=== PATIENT | female | born 1940 | race Caucasian/White ===

== ENCOUNTER 2022-10-03 13:35 | Inpatient (IN) | payer MEDICARE ==
[~2022-10-03] VITALS: Ht 149.9 cm; Wt 43.1 kg
[2022-10-03] MEDS ORDERED: ASPIRIN 81 MG CHEW TAB PO ONE ×2 (16:15→18:45)
[2022-10-03] MEDS ORDERED: ALBUTEROL/IPRATROPIUM 3 ML NEB NEB ONE (16:15)
[2022-10-03 16:25] LABS: BASOPHILS # (AUTO) 0.1 (0.0-0.1); BASOPHILS % 0.5 % (0.0-1.0); HEMATOCRIT 39.5 % (34.2-44.1); HEMOGLOBIN 12.2 g/dL (12.0-16.0); LYMPHOCYTES # (AUTO) 0.9 (1.0-3.2); LYMPHOCYTES % 3.8 % (18.0-39.1); MEAN CORPUSCULAR HEMOGLOBIN 31.2 pg (28-32); MEAN CORPUSCULAR HGB CONC 30.9 g/dL (31-35); MONOCYTES # (AUTO) 0.4 (0.2-0.8); MONOCYTES % 1.9 % (4.4-11.3); NEUTROPHILS # (AUTO) 20.4 (2.1-6.9); PLATELET COUNT 296 x10e3/uL (140-360); RED BLOOD COUNT 3.91 x10e6/uL (3.6-5.1); RED CELL DISTRIBUTION WIDTH 14.6 % (11.7-14.4)
[2022-10-03 16:35] LABS: ALBUMIN 2.6 g/dL (3.5-5.0); ALBUMIN/GLOBULIN RATIO 0.5 (0.8-2.0); CALCIUM 9.4 mg/dL (8.4-10.2); CREATININE, SERUM 0.84 mg/dL (0.57-1.11)
[2022-10-03 16:43] LABS: CREATINE KINASE MB 2.2 ng/mL (0-5.0)
[2022-10-03] MEDS ORDERED: CEFTRIAXONE 1 GM VIAL IV ONE (17:15)
[2022-10-03] MEDS ORDERED: SODIUM CHLORIDE 0.9% 1000ML 1,000 ML IV SCH (17:15)
[2022-10-03] MEDS ORDERED: IOPAMIDOL 370 MG/ML 100 ML INFUS..BTL INJ ONE (17:35)
[2022-10-03] MEDS ORDERED: SODIUM CHLORIDE 0.9% 100 ML ONE (17:35)
[2022-10-03] MEDS ORDERED: SODIUM CHLORIDE FLUSH 10 ML SYR INJ PRN (18:45)
[2022-10-03] MEDS ORDERED: Morphine 2mg Syringe 2 MG/ML SYR IV PRN (18:45)
[2022-10-03] MEDS ORDERED: ONDANSETRON HCL INJ 2MG/ML 2ML 2 MG/ML VIAL IV PRN (18:45)
[2022-10-03 18:50] LABS: BAND NEUTROPHILS % (MANUAL) 5 %; LYMPHOCYTES % (MANUAL) 3 % (19-48); METAMYELOCYTES % (MANUAL) 1 % (0-0); MONOCYTES % (MANUAL) 2 % (3.4-9.0); MYELOCYTES % (MANUAL) 2 % (0-0); NEUTROPHILS % (MANUAL) 87 % (40-74)
[2022-10-03 18:51] LABS: PLATELET ESTIMATE ADEQUATE; PLATELET MORPHOLOGY COMMENT FEW EDTA CLUMPING
[2022-10-03 18:52] LABS: RBC MORPHOLOGY COMMENT NORMAL
[2022-10-03 21:17] LABS: CREATINE KINASE MB 2.6 ng/mL (0-5.0)
[2022-10-03] MEDS: SODIUM CHLORIDE 0.9% 1000ML 1,000 ML IV SCH (23:25)
[2022-10-03] MEDS ORDERED: LEVOTHYROXINE75 MCG PO (23:58)
[2022-10-03] MEDS ORDERED: CARVEDILOL3.125 MG PO (23:58)
[2022-10-03] MEDS ORDERED: ASPIRIN81 MG PO (23:58)
[2022-10-03] MEDS ORDERED: ADVIL200 M1 PO (23:58)
[2022-10-03] MEDS ORDERED: ESCITALOPRAM OX10 MG PO (23:58)
[2022-10-04] VITALS (8 sets, daily range): BP systolic 140–168; BP diastolic 55–76
[2022-10-04] MEDS ORDERED: ACETAMINOPHEN 325 MG TAB PO PRN (01:00)
[2022-10-04] MEDS ORDERED: TEMAZEPAM 15 MG CAP PO PRN (01:30)
[2022-10-04] MEDS: HYDRALAZINE HCL 20 MG/ML VIAL IV PRN (03:02)
[2022-10-04 03:29] LABS: CREATINE KINASE MB 2.5 ng/mL (0-5.0)
[2022-10-04 05:55] LABS: BASOPHILS # (AUTO) 0.2 (0.0-0.1); BASOPHILS % 0.6 % (0.0-1.0); HEMATOCRIT 37.5 % (34.2-44.1); LYMPHOCYTES # (AUTO) 1.2 (1.0-3.2); LYMPHOCYTES % 5.2 % (18.0-39.1); MEAN CORPUSCULAR HEMOGLOBIN 31.3 pg (28-32); MEAN CORPUSCULAR VOLUME 97.7 fL (81-99); MONOCYTES # (AUTO) 0.4 (0.2-0.8); MONOCYTES % 1.9 % (4.4-11.3); NEUTROPHILS # (AUTO) 19.4 (2.1-6.9); NEUTROPHILS % 82.9 % (38.7-80.0); PLATELET COUNT 301 x10e3/uL (140-360); RED BLOOD COUNT 3.84 x10e6/uL (3.6-5.1); RED CELL DISTRIBUTION WIDTH 14.3 % (11.7-14.4)
[2022-10-04 06:24] LABS: ALBUMIN 2.3 g/dL (3.5-5.0); ALBUMIN/GLOBULIN RATIO 0.5 (0.8-2.0); ANION GAP 14.1 mmol/L (8-16); CALCIUM 8.8 mg/dL (8.4-10.2); CHOL/HDL RATIO 4.6 (3.0-3.6); CREATININE, SERUM 0.84 mg/dL (0.57-1.11); PHOSPHORUS 2.1 MG/DL (2.3-4.7); POTASSIUM 4.1 mmol/L (3.5-5.1)
[2022-10-04 06:47] LABS: THYROID STIMULATING HORMONE 2.559 uIU/mL (0.350-4.940)
[2022-10-04] MEDS ORDERED: FAMOTIDINE 20 MG TAB PO SCH (07:30)
[2022-10-04 08:50] LABS: BAND NEUTROPHILS % (MANUAL) 7 %; LYMPHOCYTES % (MANUAL) 3 % (19-48); METAMYELOCYTES % (MANUAL) 3 % (0-0); MONOCYTES % (MANUAL) 2 % (3.4-9.0); MYELOCYTES % (MANUAL) 3 % (0-0); NEUTROPHILS % (MANUAL) 81 % (40-74); NUCLEATED RED BLOOD CELLS 1; PLATELET ESTIMATE ADEQUATE; PLATELET MORPHOLOGY COMMENT NORMAL; RBC MORPHOLOGY COMMENT NORMAL; TOXIC GRANULATION MODERATE
[2022-10-04] MEDS: FAMOTIDINE 20 MG TAB PO SCH (09:00)
[2022-10-04] MEDS ORDERED: ONDANSETRON HCL 4 MG ORAL DISINTEGRATING TAB PO PRN (09:30)
[2022-10-04] MEDS: CARVEDILOL 3.125 MG TAB PO SCH ×2 (10:00→16:48)
[2022-10-04] MEDS: ESCITALOPRAM OXALATE 10 MG TAB PO SCH (10:00)
[2022-10-04] MEDS: LEVOTHYROXINE SODIUM 75 MCG TAB PO SCH (10:00)
[2022-10-04] MEDS: SODIUM CHLORIDE 0.9% 1000ML 1,000 ML IV SCH (10:09)
[2022-10-04 11:25] LABS: CREATINE KINASE MB 2.6 ng/mL (0-5.0)
[2022-10-04] MEDS: ALBUTEROL SULF 0.083% NEB SOLN 3 ML NEB NEB PRN (12:23)
[2022-10-04] MEDS ORDERED: LACTATED RINGER'S 1,000 ML INJ ONE (13:30)
[2022-10-04] MEDS ORDERED: METHYLPREDNISOLONE SOD SUCC 40 MG/ML VIAL 1ML IV ONE (14:00)
[2022-10-04] MEDS: PHOSPHORUS 250 MG TAB PO SCH (14:43)
[2022-10-04] MEDS: ASPIRIN 81 MG CHEW TAB PO SCH (19:42)
[2022-10-04] MEDS: IBUPROFEN 200 MG TAB PO SCH (19:43)
[2022-10-04] MEDS: BUDESONIDE/FORMOTEROL 160/4.5MCG INHALER INH SCH (19:55)
[2022-10-05 00:36] VITALS: BP 135/67
[2022-10-05 06:43] LABS: BASOPHILS % 0.1 % (0.0-1.0); HEMATOCRIT 33.5 % (34.2-44.1); HEMOGLOBIN 11.2 g/dL (12.0-16.0); LYMPHOCYTES % 4.3 % (18.0-39.1); MEAN CORPUSCULAR HEMOGLOBIN 31.1 pg (28-32); MEAN CORPUSCULAR HGB CONC 33.4 g/dL (31-35); MEAN CORPUSCULAR VOLUME 93.1 fL (81-99); MONOCYTES # (AUTO) 0.5 (0.2-0.8); MONOCYTES % 2.2 % (4.4-11.3); NEUTROPHILS # (AUTO) 20.9 (2.1-6.9); NEUTROPHILS % 86.5 % (38.7-80.0); PLATELET COUNT 261 x10e3/uL (140-360); RED CELL DISTRIBUTION WIDTH 14.6 % (11.7-14.4)
[2022-10-05 07:03] LABS: ALBUMIN 2.1 g/dL (3.5-5.0); ALBUMIN/GLOBULIN RATIO 0.6 (0.8-2.0); ANION GAP 9.9 mmol/L (8-16); CALCIUM 8.4 mg/dL (8.4-10.2); CREATININE, SERUM 0.8 mg/dL (0.57-1.11); POTASSIUM 3.9 mmol/L (3.5-5.1)
[2022-10-05 07:32] LABS: LYMPHOCYTES % (MANUAL) 4 % (19-48); METAMYELOCYTES % (MANUAL) 2 % (0-0); MONOCYTES % (MANUAL) 3 % (3.4-9.0); MYELOCYTES % (MANUAL) 2 % (0-0); NEUTROPHILS % (MANUAL) 87 % (40-74); PLASMA CELLS %(MANUAL) 1; PROMYELOCYTES % (MANUAL) 1 % (0-0)
[2022-10-05 07:33] LABS: PLATELET ESTIMATE ADEQUATE; PLATELET MORPHOLOGY COMMENT NORMAL; RBC MORPHOLOGY COMMENT NORMAL; TOXIC GRANULATION MODERATE
[2022-10-05] MEDS: BUDESONIDE/FORMOTEROL 160/4.5MCG INHALER INH SCH ×2 (07:35→20:20)
[2022-10-05 08:00] VITALS: BP 165/65
[2022-10-05] MEDS: FAMOTIDINE 20 MG TAB PO SCH (08:34)
[2022-10-05] MEDS: LEVOTHYROXINE SODIUM 75 MCG TAB PO SCH (08:35)
[2022-10-05] MEDS: CARVEDILOL 3.125 MG TAB PO SCH ×2 (08:35→17:16)
[2022-10-05] MEDS: PHOSPHORUS 250 MG TAB PO SCH (08:35)
[2022-10-05] MEDS: ESCITALOPRAM OXALATE 10 MG TAB PO SCH (08:35)
[2022-10-05 11:35] VITALS: BP 169/52
[2022-10-05] MEDS: ALBUTEROL SULF 0.083% NEB SOLN 3 ML NEB NEB PRN (13:40)
[2022-10-05 15:55] VITALS: BP 141/56
[2022-10-05 20:00] VITALS: BP 158/55
[2022-10-05 21:00] VITALS: BP 158/55
[2022-10-05] MEDS: IBUPROFEN 200 MG TAB PO SCH (21:14)
[2022-10-05] MEDS: ASPIRIN 81 MG CHEW TAB PO SCH (21:14)
[2022-10-06] VITALS (8 sets, daily range): BP systolic 134–170; BP diastolic 58–70
[2022-10-06] MEDS: BUDESONIDE/FORMOTEROL 160/4.5MCG INHALER INH SCH ×2 (06:24→18:30)
[2022-10-06 06:51] LABS: BASOPHILS # (AUTO) 0.1 (0.0-0.1); BASOPHILS % 0.9 % (0.0-1.0); EOSINOPHILS % 0.3 % (0.0-6.0); HEMATOCRIT 33.1 % (34.2-44.1); LYMPHOCYTES % 8.1 % (18.0-39.1); MEAN CORPUSCULAR HGB CONC 33.2 g/dL (31-35); MEAN CORPUSCULAR VOLUME 93.2 fL (81-99); MONOCYTES # (AUTO) 0.7 (0.2-0.8); MONOCYTES % 5.4 % (4.4-11.3); NEUTROPHILS % 77.3 % (38.7-80.0); PLATELET COUNT 242 x10e3/uL (140-360); RED BLOOD COUNT 3.55 x10e6/uL (3.6-5.1); RED CELL DISTRIBUTION WIDTH 14.6 % (11.7-14.4)
[2022-10-06 07:20] LABS: ALBUMIN/GLOBULIN RATIO 0.6 (0.8-2.0); ANION GAP 10.6 mmol/L (8-16); CALCIUM 8.3 mg/dL (8.4-10.2); CREATININE, SERUM 0.81 mg/dL (0.57-1.11); POTASSIUM 3.6 mmol/L (3.5-5.1)
[2022-10-06] MEDS: FAMOTIDINE 20 MG TAB PO SCH (09:00)
[2022-10-06] MEDS: PHOSPHORUS 250 MG TAB PO SCH (09:05)
[2022-10-06] MEDS: CARVEDILOL 3.125 MG TAB PO SCH ×2 (09:05→17:30)
[2022-10-06] MEDS: ESCITALOPRAM OXALATE 10 MG TAB PO SCH (09:05)
[2022-10-06] MEDS: ALBUTEROL SULF 0.083% NEB SOLN 3 ML NEB NEB PRN (18:30)
[2022-10-06] MEDS: IBUPROFEN 200 MG TAB PO SCH (20:53)
[2022-10-06] MEDS: ASPIRIN 81 MG CHEW TAB PO SCH (20:54)
[2022-10-07] VITALS (8 sets, daily range): BP systolic 130–186; BP diastolic 56–94
[2022-10-07 05:04] LABS: BASOPHILS # (AUTO) 0.1 (0.0-0.1); BASOPHILS % 0.5 % (0.0-1.0); EOSINOPHILS # (AUTO) 0.1 (0.0-0.4); EOSINOPHILS % 1.2 % (0.0-6.0); HEMATOCRIT 32.7 % (34.2-44.1); HEMOGLOBIN 10.9 g/dL (12.0-16.0); LYMPHOCYTES # (AUTO) 1.1 (1.0-3.2); LYMPHOCYTES % 10.9 % (18.0-39.1); MEAN CORPUSCULAR HEMOGLOBIN 31.2 pg (28-32); MEAN CORPUSCULAR HGB CONC 33.3 g/dL (31-35); MEAN CORPUSCULAR VOLUME 93.7 fL (81-99); MONOCYTES # (AUTO) 0.6 (0.2-0.8); MONOCYTES % 6.5 % (4.4-11.3); NEUTROPHILS # (AUTO) 7.3 (2.1-6.9); NEUTROPHILS % 73.5 % (38.7-80.0); PLATELET COUNT 195 x10e3/uL (140-360); RED BLOOD COUNT 3.49 x10e6/uL (3.6-5.1); RED CELL DISTRIBUTION WIDTH 14.4 % (11.7-14.4)
[2022-10-07 05:19] LABS: ANION GAP 9.6 mmol/L (8-16); CREATININE, SERUM 0.78 mg/dL (0.57-1.11); POTASSIUM 3.6 mmol/L (3.5-5.1)
[2022-10-07] MEDS: LEVOTHYROXINE SODIUM 75 MCG TAB PO SCH (06:16)
[2022-10-07] MEDS: BUDESONIDE/FORMOTEROL 160/4.5MCG INHALER INH SCH ×2 (07:00→19:20)
[2022-10-07] MEDS: PHOSPHORUS 250 MG TAB PO SCH (09:35)
[2022-10-07] MEDS: FAMOTIDINE 20 MG TAB PO SCH (09:35)
[2022-10-07] MEDS: ESCITALOPRAM OXALATE 10 MG TAB PO SCH (09:36)
[2022-10-07] MEDS: CARVEDILOL 3.125 MG TAB PO SCH ×2 (09:36→17:12)
[2022-10-07] MEDS: HYDRALAZINE HCL 20 MG/ML VIAL IV PRN (09:37)
[2022-10-07] MEDS: ALBUTEROL SULF 0.083% NEB SOLN 3 ML NEB NEB PRN ×2 (13:10→19:20)
[2022-10-07] MEDS: IBUPROFEN 200 MG TAB PO SCH (21:12)
[2022-10-07] MEDS: ASPIRIN 81 MG CHEW TAB PO SCH (21:14)
[2022-10-08] VITALS (9 sets, daily range): BP systolic 127–171; BP diastolic 53–71
[2022-10-08] MEDS: LEVOTHYROXINE SODIUM 75 MCG TAB PO SCH (06:00)
[2022-10-08] MEDS: BUDESONIDE/FORMOTEROL 160/4.5MCG INHALER INH SCH ×2 (07:00→19:05)
[2022-10-08] MEDS: ESCITALOPRAM OXALATE 10 MG TAB PO SCH (09:05)
[2022-10-08] MEDS: FAMOTIDINE 20 MG TAB PO SCH (09:06)
[2022-10-08] MEDS: CARVEDILOL 3.125 MG TAB PO SCH ×2 (09:09→20:21)
[2022-10-08] MEDS: PHOSPHORUS 250 MG TAB PO SCH (09:09)
[2022-10-08] MEDS: ALBUTEROL SULF 0.083% NEB SOLN 3 ML NEB NEB PRN ×2 (10:50→19:05)
[2022-10-08] MEDS: IBUPROFEN 200 MG TAB PO SCH (20:21)
[2022-10-08] MEDS: ASPIRIN 81 MG CHEW TAB PO SCH (20:21)
[2022-10-08] MEDS ORDERED: CARVEDILOL 3.125 MG TAB PO SCH (21:00)
[2022-10-09] VITALS (10 sets, daily range): BP systolic 127–142; BP diastolic 59–75
[2022-10-09] MEDS: LEVOTHYROXINE SODIUM 75 MCG TAB PO SCH (06:22)
[2022-10-09] MEDS: BUDESONIDE/FORMOTEROL 160/4.5MCG INHALER INH SCH ×2 (07:00→19:55)
[2022-10-09] MEDS: FAMOTIDINE 20 MG TAB PO SCH (08:37)
[2022-10-09] MEDS: ESCITALOPRAM OXALATE 10 MG TAB PO SCH (08:37)
[2022-10-09] MEDS: PHOSPHORUS 250 MG TAB PO SCH (08:37)
[2022-10-09] MEDS: CARVEDILOL 3.125 MG TAB PO SCH ×2 (08:38→21:26)
[2022-10-09] MEDS: ALBUTEROL SULF 0.083% NEB SOLN 3 ML NEB NEB PRN ×2 (11:00→19:55)
[2022-10-09] MEDS: ASPIRIN 81 MG CHEW TAB PO SCH (21:25)
[2022-10-09] MEDS: IBUPROFEN 200 MG TAB PO SCH (21:26)
[2022-10-10] VITALS (8 sets, daily range): BP systolic 111–162; BP diastolic 48–74
[2022-10-10] MEDS: LEVOTHYROXINE SODIUM 75 MCG TAB PO SCH (06:09)
[2022-10-10] MEDS: BUDESONIDE/FORMOTEROL 160/4.5MCG INHALER INH SCH ×2 (07:15→19:43)
[2022-10-10 08:11] LABS: BASOPHILS % 0.4 % (0.0-1.0); EOSINOPHILS # (AUTO) 0.2 (0.0-0.4); EOSINOPHILS % 2.7 % (0.0-6.0); HEMATOCRIT 36.9 % (34.2-44.1); HEMOGLOBIN 11.2 g/dL (12.0-16.0); LYMPHOCYTES # (AUTO) 1.4 (1.0-3.2); LYMPHOCYTES % 18.3 % (18.0-39.1); MEAN CORPUSCULAR HEMOGLOBIN 30.7 pg (28-32); MEAN CORPUSCULAR HGB CONC 30.4 g/dL (31-35); MEAN CORPUSCULAR VOLUME 101.1 fL (81-99); MONOCYTES # (AUTO) 0.7 (0.2-0.8); MONOCYTES % 8.6 % (4.4-11.3); NEUTROPHILS % 65.6 % (38.7-80.0); PLATELET COUNT 267 x10e3/uL (140-360); RED BLOOD COUNT 3.65 x10e6/uL (3.6-5.1); RED CELL DISTRIBUTION WIDTH 14.5 % (11.7-14.4)
[2022-10-10 08:38] LABS: ANION GAP 9.5 mmol/L (8-16); CALCIUM 7.8 mg/dL (8.4-10.2); CREATININE, SERUM 0.81 mg/dL (0.57-1.11); POTASSIUM 3.5 mmol/L (3.5-5.1)
[2022-10-10] MEDS: PHOSPHORUS 250 MG TAB PO SCH (09:42)
[2022-10-10] MEDS: FAMOTIDINE 20 MG TAB PO SCH (09:43)
[2022-10-10] MEDS: CARVEDILOL 3.125 MG TAB PO SCH ×2 (09:43→20:36)
[2022-10-10] MEDS: ESCITALOPRAM OXALATE 10 MG TAB PO SCH (09:43)
[2022-10-10] MEDS ORDERED: POTASSIUM CHLORIDE 20 MEQ TAB CR PO ONE (11:00)
[2022-10-10] MEDS: ALBUTEROL SULF 0.083% NEB SOLN 3 ML NEB NEB PRN ×2 (11:00→19:43)
[2022-10-10] MEDS: IBUPROFEN 200 MG TAB PO SCH (20:29)
[2022-10-10] MEDS: ASPIRIN 81 MG CHEW TAB PO SCH (20:29)
[2022-10-10] MEDS ORDERED: BALSAM PERU/CASTOR OIL 60 GM OINT...G. TP SCH (21:00)
[2022-10-11] VITALS: BP 139/59
[2022-10-11 04:46] VITALS: BP 146/66
[2022-10-11] MEDS: LEVOTHYROXINE SODIUM 75 MCG TAB PO SCH (05:16)
[2022-10-11] MEDS: BUDESONIDE/FORMOTEROL 160/4.5MCG INHALER INH SCH (06:46)
[2022-10-11 08:15] VITALS: BP 143/60
[2022-10-11] MEDS: PHOSPHORUS 250 MG TAB PO SCH (08:49)
[2022-10-11] MEDS: FAMOTIDINE 20 MG TAB PO SCH (08:49)
[2022-10-11] MEDS: ESCITALOPRAM OXALATE 10 MG TAB PO SCH (08:49)
[2022-10-11] MEDS: CARVEDILOL 3.125 MG TAB PO SCH (08:50)
[2022-10-11 08:57] VITALS: BP 143/60
[2022-10-11] MEDS ORDERED: BALSAM PERU/CASTOR OIL 60 GM OINT...G. TP SCH (09:00)
[2022-10-11 11:43] VITALS: BP 116/79
[2022-10-11 16:33] VITALS: BP 145/65
[2022-10-11] MEDS ORDERED: ONDANSETRON ODT4 MG PO (16:35)
[2022-10-11] MEDS ORDERED: CEFUROXIME250 MG PO (16:35)
[2022-10-11] MEDS ORDERED: ALBUTEROL2.5 MG/3 M NEB (16:35)
[2022-10-11] MEDS ORDERED: AZITHROMYCIN250 MG PO (16:35)
[2022-10-11] MEDS ORDERED: ACETAMINOPHEN325 M1 PO (16:35)
[2022-10-11] MEDS ORDERED: SYMBICORT 16010.2 GM INH (16:35)
[2022-10-11] MEDS ORDERED: VENELEX OINTMEN60 GM TP (16:35)
== END 2022-10-11 17:39 | disposition home or self-care (01) | DRG 194 ==
LOC: ER 14:04 → ERHOLD 18:41 → MED/SURG 10-04 02:06
PROVIDERS: ADMIT Internal Medicine; ATTEND Internal Medicine
DX: J18.9 Pneumonia, unspecified organism (principal); E44.0 Moderate protein-calorie malnutrition; J44.1 Chronic obstructive pulmonary disease with (acute) exacerbation; R64 Cachexia; Z68.1 Body mass index [BMI] 19.9 or less, adult; J44.0 Chronic obstructive pulmonary disease with (acute) lower respiratory infection; D72.829 Elevated white blood cell count, unspecified; E03.9 Hypothyroidism, unspecified; R19.7 Diarrhea, unspecified; I10 Essential (primary) hypertension; F41.9 Anxiety disorder, unspecified; T38.0X5A Adverse effect of glucocorticoids and synthetic analogues, initial encounter; G25.81 Restless legs syndrome; D64.9 Anemia, unspecified; R06.89 Other abnormalities of breathing; E87.6 Hypokalemia; Z87.891 Personal history of nicotine dependence; Z90.49 Acquired absence of other specified parts of digestive tract; Z91.14 Patient's other noncompliance with medication regimen; Z86.19 Personal history of other infectious and parasitic diseases; Z79.82 Long term (current) use of aspirin; Z20.822 Contact with and (suspected) exposure to COVID-19
CPT/HCPCS: 0223U; 36415; 71045; 71260; 80048; 80053; 80061; 82550; 82553; 83036; 83605; 83735; 84100; 84443; 84484; 85025; 85379; 87040; 93005; 93306; 94640; 94664; 94799; 96360; 99252; 99284; J0360; J0456; J0696; J2920; J7030; J7050; J7121; Q9967

== ENCOUNTER 2023-06-11 10:18 | Inpatient (IN) | payer OTHER, MEDICARE ==
[~2023-06-11] VITALS: Ht 149.9 cm; Wt 43.5 kg
[~2023-06-11 10:18] MED LIST: ACETAMINOPHEN325 M1 PO; ADVIL200 M1 PO; ALBUTEROL2.5 MG/3 M NEB; ASPIRIN81 MG PO; AZITHROMYCIN250 MG PO; CARVEDILOL3.125 MG PO; CEFUROXIME250 MG PO; ESCITALOPRAM OX10 MG PO; LEVOTHYROXINE75 MCG PO; ONDANSETRON ODT4 MG PO; SYMBICORT 16010.2 GM INH; VENELEX OINTMEN60 GM TP
[2023-06-11] MEDS ORDERED: TETANUS/DIPHTHERIA TOX ADULT 0.5 ML SYR IM ONE (10:45)
[2023-06-11] MEDS ORDERED: DEXAMETHASONE SOD PHOS 10 MG/1 ML VIAL IM ONE (11:00)
[2023-06-11] MEDS ORDERED: KETOROLAC TROMETHAMINE 60 MG/2 ML VIAL IM ONE (11:30)
[2023-06-11] MEDS ORDERED: ONDANSETRON HCL INJ 2MG/ML 2ML 2 MG/ML VIAL IV PRN (13:00)
[2023-06-11 13:12] LABS: BASOPHILS % 0.2 % (0.0-1.0); EOSINOPHILS # (AUTO) 0.1 (0.0-0.4); EOSINOPHILS % 1.3 % (0.0-6.0); HEMATOCRIT 40.4 % (34.2-44.1); HEMOGLOBIN 13.9 g/dL (12.0-16.0); LYMPHOCYTES # (AUTO) 1.1 (1.0-3.2); LYMPHOCYTES % 13.1 % (18.0-39.1); MEAN CORPUSCULAR HEMOGLOBIN 31.1 pg (28-32); MEAN CORPUSCULAR HGB CONC 34.4 g/dL (31-35); MEAN CORPUSCULAR VOLUME 90.4 fL (81-99); MONOCYTES # (AUTO) 0.5 (0.2-0.8); MONOCYTES % 5.4 % (4.4-11.3); NEUTROPHILS # (AUTO) 6.6 (2.1-6.9); NEUTROPHILS % 79.4 % (38.7-80.0); PLATELET COUNT 240 x10e3/uL (140-360); RED BLOOD COUNT 4.47 x10e6/uL (3.6-5.1); RED CELL DISTRIBUTION WIDTH 14.6 % (11.7-14.4)
[2023-06-11 13:14] LABS: CLARITY,URINE HAZY (CLEAR); COLOR,URINE YELLOW (YELLOW); KETONES,URINE NEGATIVE (NEGATIVE); LEUKOCYTE ESTERASE ,URINE NEGATIVE (NEGATIVE); NITRITE,URINE NEGATIVE (NEGATIVE); PROTEIN,URINE DIPSTICK NEGATIVE (NEGATIVE); URINE UROBILINOGEN 0.2 mg/dL (0.2 - 1)
[2023-06-11 13:15] LABS: RBC,URINE >50 /HPF (0-5)
[2023-06-11 13:16] LABS: BACTERIA,URINE FEW /HPF; EPITHELIAL CELLS,URINE FEW /LPF
[2023-06-11 13:23] LABS: INR 0.93
[2023-06-11 13:24] LABS: PARTIAL THROMBOPLASTIN TIME 29.7 seconds (23.8-35.5)
[2023-06-11 13:31] VITALS: PULSE 69; RESP 25; O2SAT 95
[2023-06-11 13:31] LABS: ALBUMIN 4.2 g/dL (3.5-5.0); ALBUMIN/GLOBULIN RATIO 1.2 (0.8-2.0); ANION GAP 14.8 mmol/L (8-16); CALCIUM 9.6 mg/dL (8.4-10.2); CREATININE, SERUM 0.97 mg/dL (0.57-1.11); MAGNESIUM 1.9 MG/DL (1.3-2.1); POTASSIUM 4.8 mmol/L (3.5-5.1)
[2023-06-11 14:49] VITALS: BP 174/61; PULSE 69; RESP 16; TEMP 98.2; O2SAT 96
[2023-06-11 14:52] VITALS: BP 174/61; PULSE 69; RESP 16; TEMP 98.2; O2SAT 96
[2023-06-11] MEDS: SODIUM CHLORIDE 0.9% 1000ML 1,000 ML IV SCH (15:46)
[2023-06-11] MEDS ORDERED: ACETAMINOPHEN 325 MG TAB PO PRN (16:00)
[2023-06-11] MEDS ORDERED: KETOROLAC TROMETHAMINE 30 MG/ML VIAL IV PRN (16:00)
[2023-06-11] MEDS ORDERED: CARVEDILOL 3.125 MG TAB PO SCH (17:00)
[2023-06-11 20:30] VITALS: BP 140/63; PULSE 76; RESP 16; TEMP 98.7; O2SAT 94
[2023-06-11] MEDS: CARVEDILOL 3.125 MG TAB PO SCH (20:38)
[2023-06-11 21:30] VITALS: BP 140/63; PULSE 76; RESP 16; TEMP 98.7; O2SAT 94
[2023-06-12] VITALS: BP 142/84; PULSE 62; RESP 20; TEMP 98.1; O2SAT 93
[2023-06-12] MEDS: SODIUM CHLORIDE 0.9% 1000ML 1,000 ML IV SCH ×2 (00:11→09:28)
[2023-06-12 04:00] VITALS: BP 143/64; PULSE 64; RESP 20; TEMP 98.6; O2SAT 94
[2023-06-12 05:01] LABS: BASOPHILS % 0.3 % (0.0-1.0); HEMATOCRIT 33.9 % (34.2-44.1); LYMPHOCYTES # (AUTO) 0.7 (1.0-3.2); LYMPHOCYTES % 7.1 % (18.0-39.1); MEAN CORPUSCULAR HEMOGLOBIN 32.2 pg (28-32); MEAN CORPUSCULAR HGB CONC 35.4 g/dL (31-35); MEAN CORPUSCULAR VOLUME 90.9 fL (81-99); MONOCYTES # (AUTO) 0.8 (0.2-0.8); MONOCYTES % 7.9 % (4.4-11.3); NEUTROPHILS # (AUTO) 8.5 (2.1-6.9); NEUTROPHILS % 84.3 % (38.7-80.0); PLATELET COUNT 170 x10e3/uL (140-360); RED BLOOD COUNT 3.73 x10e6/uL (3.6-5.1); RED CELL DISTRIBUTION WIDTH 14.9 % (11.7-14.4); WHITE BLOOD COUNT 10.06 x10e3/uL (4.8-10.8)
[2023-06-12] MEDS: LEVOTHYROXINE SODIUM 75 MCG TAB PO SCH ×2 (05:24→08:27)
[2023-06-12] MEDS: ESCITALOPRAM OXALATE 10 MG TAB PO SCH ×2 (05:24→08:26)
[2023-06-12 06:22] LABS: ALBUMIN 3.2 g/dL (3.5-5.0); ALBUMIN/GLOBULIN RATIO 1.2 (0.8-2.0); ANION GAP 12.6 mmol/L (8-16); CALCIUM 8.2 mg/dL (8.4-10.2); CREATININE, SERUM 1.21 mg/dL (0.57-1.11); POTASSIUM 4.6 mmol/L (3.5-5.1)
[2023-06-12 08:08] VITALS: BP 143/67; PULSE 64; RESP 15; TEMP 98.1; O2SAT 97
[2023-06-12] MEDS: CARVEDILOL 3.125 MG TAB PO SCH ×2 (08:22→21:08)
[2023-06-12] MEDS ORDERED: ROPIVACAINE 0.5% 5 MG/ML 30 ML SDV ONE ×2 (12:04→15:26)
[2023-06-12 12:05] VITALS: BP 122/64; PULSE 63; RESP 16; TEMP 98; O2SAT 96
[2023-06-12] MEDS ORDERED: PROPOFOL IV EMULSION 10 MG/ML 20 ML VIAL ONE (12:10)
[2023-06-12] MEDS ORDERED: ONDANSETRON HCL INJ 2MG/ML 2ML 2 MG/ML VIAL ONE (12:10)
[2023-06-12] MEDS ORDERED: DEXAMETHASONE SOD PHOS INJ 4 MG/ML SDV ONE (12:10)
[2023-06-12] MEDS ORDERED: SUCCINYLCHOLINE CHLORIDE 20 MG/ML 10ML VIAL ONE (12:10)
[2023-06-12] MEDS ORDERED: LIDOCAINE HCL 2% LOCAL INJ 5 ML SDV VIAL INJ ONE (12:10)
[2023-06-12] MEDS ORDERED: SEVOFLURANE INHAL SOLN 250 ML PEN BTL ONE (12:10)
[2023-06-12] MEDS ORDERED: FENTANYL CITRATE/PF 100MCG/2 ML INJ ONE ×2 (12:18→15:26)
[2023-06-12] MEDS ORDERED: MIDAZOLAM HCL 2 MG/2 ML VIAL ONE (15:26)
[2023-06-12 20:00] VITALS: BP 145/60; PULSE 59; PULSE 66; RESP 16; TEMP 96.7; O2SAT 92; O2SAT 98
[2023-06-13] MEDS: SODIUM CHLORIDE 0.9% 1000ML 1,000 ML IV SCH ×3 (00:17→17:28)
[2023-06-13 00:38] VITALS: BP 118/61; PULSE 58; RESP 20; TEMP 97.9; O2SAT 94
[2023-06-13] MEDS: Morphine 2mg Syringe 2 MG/ML SYR IV PRN ×2 (03:56→17:29)
[2023-06-13] MEDS ORDERED: HYDRALAZINE HCL 20 MG/ML VIAL IV PRN (05:45)
[2023-06-13] MEDS: ESCITALOPRAM OXALATE 10 MG TAB PO SCH (05:56)
[2023-06-13] MEDS: LEVOTHYROXINE SODIUM 75 MCG TAB PO SCH (05:56)
[2023-06-13] MEDS ORDERED: POLYETHYLENE GLYCOL 3350 17 GM PACK PO PRN (06:00)
[2023-06-13] MEDS ORDERED: ENOXAPARIN SODIUM INJ 100 MG/ML SYR SC ONE ×2 (06:15→09:00)
[2023-06-13 06:44] LABS: BASOPHILS % 0.2 % (0.0-1.0); HEMATOCRIT 35.4 % (34.2-44.1); HEMOGLOBIN 10.9 g/dL (12.0-16.0); LYMPHOCYTES # (AUTO) 0.8 (1.0-3.2); LYMPHOCYTES % 9.2 % (18.0-39.1); MEAN CORPUSCULAR HEMOGLOBIN 30.9 pg (28-32); MEAN CORPUSCULAR HGB CONC 30.8 g/dL (31-35); MEAN CORPUSCULAR VOLUME 100.3 fL (81-99); MONOCYTES # (AUTO) 0.7 (0.2-0.8); MONOCYTES % 7.7 % (4.4-11.3); NEUTROPHILS # (AUTO) 7.3 (2.1-6.9); NEUTROPHILS % 82.3 % (38.7-80.0); PLATELET COUNT 167 x10e3/uL (140-360); RED BLOOD COUNT 3.53 x10e6/uL (3.6-5.1); RED CELL DISTRIBUTION WIDTH 15.4 % (11.7-14.4); WHITE BLOOD COUNT 8.91 x10e3/uL (4.8-10.8)
[2023-06-13 07:36] LABS: ANION GAP 12.7 mmol/L (8-16); CALCIUM 7.9 mg/dL (8.4-10.2); CREATININE, SERUM 1.11 mg/dL (0.57-1.11); MAGNESIUM 1.7 MG/DL (1.3-2.1); PHOSPHORUS 4.7 MG/DL (2.3-4.7); POTASSIUM 4.7 mmol/L (3.5-5.1)
[2023-06-13 08:23] VITALS: BP 133/56; PULSE 60; RESP 16; TEMP 97.6; O2SAT 95
[2023-06-13 09:00] VITALS: BP 133/56; PULSE 60; RESP 16; TEMP 97.6; O2SAT 95
[2023-06-13] MEDS ORDERED: ENOXAPARIN SOD INJ 40 MG/0.4 ML SYR SC ONE (09:00)
[2023-06-13] MEDS: DOCUSATE SODIUM 100 MG CAP PO SCH ×2 (09:56→17:28)
[2023-06-13] MEDS: CARVEDILOL 3.125 MG TAB PO SCH ×2 (09:57→21:39)
[2023-06-13] MEDS ORDERED: MAGNESIUM SULF 1GRAM/DEXTROSE 100 ML IV ONE (10:00)
[2023-06-13 14:07] VITALS: BP 118/68; PULSE 68; RESP 17; TEMP 97.9; O2SAT 95
[2023-06-13] MEDS ORDERED: ENOXAPARIN SODIUM INJ 100 MG/ML SYR SC SCH (18:00)
[2023-06-13 20:00] VITALS: BP 103/63; PULSE 64; RESP 17; TEMP 99; O2SAT 94
[2023-06-13 21:30] VITALS: BP 103/63; PULSE 64; RESP 17; TEMP 99; O2SAT 94
[2023-06-13] MEDS: ENOXAPARIN 30 MG/0.3 ML SYR SC SCH (21:39)
[2023-06-14] VITALS (7 sets, daily range): BP systolic 101–135; BP diastolic 48–67; PULSE 69–78; RESP 16–18; TEMP 97.8–99.6; O2SAT 94–98
[2023-06-14] MEDS: Morphine 2mg Syringe 2 MG/ML SYR IV PRN ×2 (00:16→15:27)
[2023-06-14] MEDS: SODIUM CHLORIDE 0.9% 1000ML 1,000 ML IV SCH (05:02)
[2023-06-14] MEDS: ESCITALOPRAM OXALATE 10 MG TAB PO SCH (05:42)
[2023-06-14] MEDS: LEVOTHYROXINE SODIUM 75 MCG TAB PO SCH (05:42)
[2023-06-14] MEDS: DOCUSATE SODIUM 100 MG CAP PO SCH ×2 (09:45→17:32)
[2023-06-14] MEDS: CARVEDILOL 3.125 MG TAB PO SCH ×2 (09:45→21:27)
[2023-06-14] MEDS: ENOXAPARIN 30 MG/0.3 ML SYR SC SCH ×2 (09:46→21:27)
[2023-06-14] MEDS ORDERED: ONDANSETRON HCL 4 MG ORAL DISINTEGRATING TAB PO PRN (11:45)
[2023-06-14] MEDS ORDERED: HYDROCODONE/APAP 10MG-325MG TAB PO PRN (16:45)
[2023-06-15] VITALS (12 sets, daily range): BP systolic 121–151; BP diastolic 57–78; PULSE 63–78; RESP 16–20; TEMP 98–98.9; O2SAT 85–100
[2023-06-15] MEDS: ESCITALOPRAM OXALATE 10 MG TAB PO SCH (05:37)
[2023-06-15] MEDS: LEVOTHYROXINE SODIUM 75 MCG TAB PO SCH (05:37)
[2023-06-15 06:51] LABS: BASOPHILS % 0.4 % (0.0-1.0); EOSINOPHILS # (AUTO) 0.1 (0.0-0.4); EOSINOPHILS % 2.9 % (0.0-6.0); HEMATOCRIT 25.8 % (34.2-44.1); HEMOGLOBIN 8.6 g/dL (12.0-16.0); LYMPHOCYTES # (AUTO) 0.7 (1.0-3.2); LYMPHOCYTES % 15.6 % (18.0-39.1); MEAN CORPUSCULAR HEMOGLOBIN 30.6 pg (28-32); MEAN CORPUSCULAR HGB CONC 33.3 g/dL (31-35); MEAN CORPUSCULAR VOLUME 91.8 fL (81-99); MONOCYTES # (AUTO) 0.4 (0.2-0.8); MONOCYTES % 9.5 % (4.4-11.3); NEUTROPHILS # (AUTO) 3.2 (2.1-6.9); NEUTROPHILS % 71.2 % (38.7-80.0); PLATELET COUNT 146 x10e3/uL (140-360); RED BLOOD COUNT 2.81 x10e6/uL (3.6-5.1); RED CELL DISTRIBUTION WIDTH 14.9 % (11.7-14.4); WHITE BLOOD COUNT 4.55 x10e3/uL (4.8-10.8)
[2023-06-15 07:22] LABS: ALBUMIN 2.4 g/dL (3.5-5.0); ANION GAP 7.8 mmol/L (8-16); CALCIUM 7.6 mg/dL (8.4-10.2); CREATININE, SERUM 0.88 mg/dL (0.57-1.11); MAGNESIUM 1.7 MG/DL (1.3-2.1); PHOSPHORUS 2.2 MG/DL (2.3-4.7); POTASSIUM 3.8 mmol/L (3.5-5.1)
[2023-06-15] MEDS: DOCUSATE SODIUM 100 MG CAP PO SCH ×2 (08:48→17:54)
[2023-06-15] MEDS: CARVEDILOL 3.125 MG TAB PO SCH ×2 (08:48→20:24)
[2023-06-15] MEDS: ENOXAPARIN 30 MG/0.3 ML SYR SC SCH ×2 (08:48→20:23)
[2023-06-15] MEDS ORDERED: LEVALBUTEROL HCL SOLN NEBU 0.63 MG/3 ML NEB INH PRN (11:30)
[2023-06-15] MEDS ORDERED: IOPAMIDOL 370 MG/ML 100 ML INFUS..BTL INJ ONE (11:52)
[2023-06-15] MEDS ORDERED: KETOROLAC TROMETHAMINE 30 MG/ML VIAL IM PRN (18:15)
[2023-06-15] MEDS: KETOROLAC TROMETHAMINE 30 MG/ML VIAL IV PRN (18:43)
[2023-06-16] VITALS (10 sets, daily range): BP systolic 134–176; BP diastolic 56–69; PULSE 62–82; RESP 16–20; TEMP 97.5–98.2; O2SAT 95–100
[2023-06-16] MEDS: KETOROLAC TROMETHAMINE 30 MG/ML VIAL IV PRN ×3 (03:48→22:44)
[2023-06-16 05:26] LABS: BASOPHILS % 0.8 % (0.0-1.0); EOSINOPHILS # (AUTO) 0.2 (0.0-0.4); EOSINOPHILS % 4.6 % (0.0-6.0); HEMATOCRIT 24.5 % (34.2-44.1); HEMOGLOBIN 8.3 g/dL (12.0-16.0); LYMPHOCYTES # (AUTO) 0.9 (1.0-3.2); LYMPHOCYTES % 22.9 % (18.0-39.1); MEAN CORPUSCULAR HEMOGLOBIN 31.2 pg (28-32); MEAN CORPUSCULAR HGB CONC 33.9 g/dL (31-35); MEAN CORPUSCULAR VOLUME 92.1 fL (81-99); MONOCYTES # (AUTO) 0.5 (0.2-0.8); MONOCYTES % 11.9 % (4.4-11.3); NEUTROPHILS # (AUTO) 2.3 (2.1-6.9); PLATELET COUNT 151 x10e3/uL (140-360); RED BLOOD COUNT 2.66 x10e6/uL (3.6-5.1); WHITE BLOOD COUNT 3.88 x10e3/uL (4.8-10.8)
[2023-06-16] MEDS: LEVOTHYROXINE SODIUM 75 MCG TAB PO SCH (05:54)
[2023-06-16] MEDS: ESCITALOPRAM OXALATE 10 MG TAB PO SCH (05:54)
[2023-06-16 05:55] LABS: ANION GAP 7.8 mmol/L (8-16); CALCIUM 7.6 mg/dL (8.4-10.2); CREATININE, SERUM 0.8 mg/dL (0.57-1.11); POTASSIUM 3.8 mmol/L (3.5-5.1)
[2023-06-16] MEDS: DOCUSATE SODIUM 100 MG CAP PO SCH ×2 (08:34→16:08)
[2023-06-16] MEDS: CARVEDILOL 3.125 MG TAB PO SCH ×2 (08:34→21:50)
[2023-06-16] MEDS: ENOXAPARIN 30 MG/0.3 ML SYR SC SCH ×2 (08:35→21:52)
[2023-06-16] MEDS ORDERED: FUROSEMIDE INJ 10 MG/ML 2 ML VIAL IV ONE (14:15)
[2023-06-17] MEDS: LEVOTHYROXINE SODIUM 75 MCG TAB PO SCH (05:33)
[2023-06-17] MEDS: ESCITALOPRAM OXALATE 10 MG TAB PO SCH (05:33)
[2023-06-17 06:09] LABS: ANION GAP 11.4 mmol/L (8-16); CALCIUM 7.9 mg/dL (8.4-10.2); CREATININE, SERUM 0.79 mg/dL (0.57-1.11); POTASSIUM 3.4 mmol/L (3.5-5.1)
[2023-06-17 07:36] VITALS: PULSE 67; RESP 18; O2SAT 100
[2023-06-17 08:00] VITALS: BP 164/61; PULSE 66; RESP 20; TEMP 97.7; O2SAT 100
[2023-06-17 08:34] VITALS: BP 164/61; PULSE 66; RESP 20; TEMP 97.7; O2SAT 100
[2023-06-17] MEDS: CARVEDILOL 3.125 MG TAB PO SCH (09:14)
[2023-06-17] MEDS: ENOXAPARIN 30 MG/0.3 ML SYR SC SCH (09:15)
[2023-06-17] MEDS: DOCUSATE SODIUM 100 MG CAP PO SCH (09:15)
[2023-06-17 12:20] VITALS: BP 149/65; PULSE 68; RESP 18; TEMP 98; O2SAT 99
[2023-06-18] MEDS ORDERED: PANTOPRAZOLE SOD 40 MG TABEC PO SCH (07:30)
== END 2023-06-17 13:01 | disposition home or self-care (01) | DRG 480 ==
LOC: ER 10:23 → ERHOLD 12:57 → MED/SURG 14:50
PROVIDERS: ADMIT Internal Medicine; ATTEND Internal Medicine
PROC: 0QS636Z Reposition Right Upper Femur with Intramedullary Internal Fixation Device, Percutaneous Approach (ICD-10-PCS; principal; 2023-06-12 15:54)
DX: S72.011A Unspecified intracapsular fracture of right femur, initial encounter for closed fracture (principal); E43 Unspecified severe protein-calorie malnutrition; I50.31 Acute diastolic (congestive) heart failure; G93.41 Metabolic encephalopathy; Z68.1 Body mass index [BMI] 19.9 or less, adult; N39.0 Urinary tract infection, site not specified; W01.0XXA Fall on same level from slipping, tripping and stumbling without subsequent striking against object, initial encounter; M85.88 Other specified disorders of bone density and structure, other site; Y92.22 Religious institution as the place of occurrence of the external cause; G25.81 Restless legs syndrome; E11.9 Type 2 diabetes mellitus without complications; E83.42 Hypomagnesemia; J43.2 Centrilobular emphysema; E03.9 Hypothyroidism, unspecified; R06.00 Dyspnea, unspecified; B96.20 Unspecified Escherichia coli [E. coli] as the cause of diseases classified elsewhere; R62.7 Adult failure to thrive; Z79.82 Long term (current) use of aspirin; Z79.899 Other long term (current) drug therapy; Z87.891 Personal history of nicotine dependence; Z86.19 Personal history of other infectious and parasitic diseases; Z87.442 Personal history of urinary calculi; Z87.01 Personal history of pneumonia (recurrent); Z79.890 Hormone replacement therapy; Z81.1 Family history of alcohol abuse and dependence; Z20.822 Contact with and (suspected) exposure to COVID-19
CPT/HCPCS: 36415; 71045; 71260; 72131; 72192; 76000; 80048; 80053; 81001; 82550; 83735; 83880; 84100; 84484; 85025; 85610; 85730; 86850; 86900; 90471; 90714; 93005; 94799; 99284; C1713; J0330; J0690; J1100; J1650; J1885; J1940; J2001; J2250; J2270; J2405; J2795; J3475; J7030; L8600; Q9967; U0002